=== PATIENT | male | born 2000 | race Caucasian/White ===

== ENCOUNTER 2024-06-21 17:25 | Emergency (ER) | payer OTHER ==
[2024-06-21] MEDS ORDERED: Acetaminophen 500 MG TAB ONE (20:44)
[2024-06-21] MEDS ORDERED: Ketorolac Tromethamine 30 MG (1 mL) VIAL ONE ×2 (20:45→20:49)
[2024-06-21] MEDS ORDERED: Lidocaine 4% Patch ONE (21:14)
[2024-06-21] MEDS ORDERED: Dexamethasone 10 MG/ML VIAL ONE (21:14)
[2024-06-21] MEDS ORDERED: Morphine 4 MG/ML VIAL ONE (21:14)
== END 2024-06-21 21:30 | disposition home or self-care (01) ==
LOC: ERS 17:25
DX: M54.50 Low back pain, unspecified (principal); Z55.6 Problems related to health literacy
CPT/HCPCS: 96372; 99283; J1100; J1885; J2272